=== PATIENT | male | born 1975 | race Caucasian/White ===

== ENCOUNTER → 2021-07-21 13:08 | Outpatient (CLI) | payer OTHER, SELFPAY ==
[2021-07-21 14:56] LABS: COVID19 -Nasal RAPID Negative (Negative)
== END ==
PROVIDERS: Visit Provider Surgery
DX: Z01.812 Encounter for preprocedural laboratory examination (principal); Z20.822 Contact with and (suspected) exposure to COVID-19
CPT/HCPCS: 87635; C9803

== ENCOUNTER 2021-07-22 07:56 | Day surgery (SDC) | payer OTHER, SELFPAY ==
[2021-05-28 11:56] VITALS: BMI 28.4
[2021-07-11 10:14] VITALS: BMI 28.4
[2021-07-22 09:46] VITALS: BP 110/72; PULSE 68; RESP 16; TEMP 36.8; O2SAT 98; BMI 28.4
[2021-07-22] MEDS: LACTATED RINGERS 1,000 ML 100 ML IV (09:58)
--- NOTE | 2021-07-22 10:21 | PM.HP.1 ---
History of Present Illness History of Present Illness Date Patient Seen: 07/22/21 Time Patient Seen: 10:21 Chief complaint: SDC Narrative: 45-year-old man with a symptomatic reducible umbilical hernia here for elective repair. No interval change in health. Please refer to the H& P from May 2021 for further detail. No previous umbilical hernia repair, no major abdominal surgeries. Patient History Medical History Astigmatism Borderline glaucoma Chalazion Disorder of optic nerve Hyperlipoproteinemia Hypermetropia Iliotibial band syndrome Presbyopia Right inguinal hernia Rosacea Umbilical hernia Surgical History Hx of hernia repair (~1994) Hx of surgical procedure Family & Social History Family History Father Cancer Grandfather Aneurysm Social History: household members spouse,children Tobacco & Substance use: Smoking Status Former smoker alcohol intake never Substance Use Type does not use Meds Home Medications and Allergies Home Medications Medication Instructions Recorded Confirmed Type ibuprofen 200 mg tablet (Advil) 400 mg PO Q6H PRN 05/13/21 07/22/21 History Allergies Allergy/AdvReac Type Severity Reaction Status Date / Time No Known Drug Allergies Allergy Verified 07/22/21 09:37 Exam Vital Signs (past 8 hours): - 07/22/21 09:46 Temperature 98.3 F Pulse Rate 68 Respiratory Rate 16 Blood Pressure 110/72 Pulse Oximetry 98 Oxygen Delivery Method Room Air Narrative Exam Narrative: GENERAL: Adult male in no apparent distress HEENT: No scleral icterus CV: Regular rate, no peripheral edema LUNGS: No increased work of breathing. Patient speaks in full sentences without oxygen support. ABDOMEN: Soft, non-tender, non-distended. NEURO: Nonfocal, normal strength throughout, normal gait. SKIN: Warm and dry Assessment & Plan Assessment and plan (1) Umbilical hernia: Qualifiers: Obstruction and gangrene presence: without obstruction or gangrene Qualified Code(s): K42.9 - Umbilical hernia without obstruction or gangrene Status: Acute Assessment & Plan narrative: 45-year-old man with a symptomatic reducible umbilical hernia here for elective open repair. Technical details of the operation were discussed with the patient. Operative risks including bleeding, infection, hernia recurrence, damage to surrounding structures were discussed. His questions have been answered he is in agreement with this plan will proceed to the operating room. Time Spent With Patient Critical Care time: I spent a total of [] minutes of critical care time on this patient's care today; this time is exclusive of procedural time.
[2021-07-22] MEDS: CEFAZOLIN 2 GM/20 ML SYRINGE IV (10:40)
--- NOTE | 2021-07-22 10:48 | SUR.OPER ---
Supine on padded OR bed, head on pillow, arms secured on padded arm boards at <90 degrees abduction, legs uncrossed, safety belt at thigh, tape over blanket over lower legs.
[2021-07-22] MEDS: BUPIVACAINE 0.25% (PF) VIAL 30 ML INJ (11:04)
--- NOTE | 2021-07-22 11:21 | PM.OP.1 ---
Operative Date/Time/Diagnoses Date of procedure: 07/22/21 Time of procedure: 11:21 Pre-op diagnosis: Umbilical hernia Post-op diagnosis: same Procedure & Clinicians Procedure: Open umbilical hernia repair Same procedure as scheduled: Yes Indications: Reducible symptomatic umbilical hernia Surgeon: Dave Winter Click Yes if Unassisted: Yes Anesthesia Type: General Operative Notes Findings: 2 cm fascial defect Specimen(s): none sent Estimated Blood Loss (mL): 10 Procedure in detail: Patient was brought to the operating room placed supine on the table. Bilateral lower extremity compression devices were applied. General anesthesia was induced and they were intubated with an endotracheal tube. They received 2 g of Ancef prior to skin incision. They were prepped and draped in sterile fashion. A time-out was performed. A curvilinear incision was made inferior to the umbilicus. The subcutaneous tissues were divided. The umbilical hernia was identified and the hernia sac was dissected off the umbilical skin and circumferentially off of the fascia defect. The hernia sac was sharply opened and contained viable omentum. The omentum was reduced back into the abdomen. Using blunt dissection I carefully carefully freed the hernia sac from beneath the fascia defect in order to accomodate the mesh. The fascia defect was 1.5 cm in maximal diameter. A Bard Ventralex ST hernia patch 4 cm was inserted beneath the fascia defect within the abdominal cavity. The mesh was anchored in multiple locations using Ethibond suture to the fascia and the fascial defect was closed over the mesh. The umbilical skin was tacked to the subcutaneous tissues and then the remainder of the subcutaneous tissues were reapproximated using 3 0 Vicry,l skin closed with 4 0 Monocryl followed by the application of Dermabond and Steri-Strips. Sponge instrument count at the end of the operation was correct. Patient tolerated procedure well was extubated and transferred to postoperative care unit in stable condition. Complications: none Post-operative Condition: stable Disposition: same day surgery
[2021-07-22 11:22] VITALS: BP 111/76; PULSE 73; RESP 13; TEMP 36.3; O2SAT 97
--- NOTE | 2021-07-22 11:26 | SUR.PHASEI ---
Received to PACU after general anesthesia. Airway patent, self maintained. Report received from RICHARD Weems Dr.
[2021-07-22 11:27] VITALS: BP 115/78; PULSE 67; RESP 14; O2SAT 97
[2021-07-22 11:39] VITALS: BP 112/64; PULSE 70; RESP 13; TEMP 36.2; O2SAT 97
[2021-07-22] MEDS: OXYCODONE IR 5 MG TABLET PO (11:44)
--- NOTE | 2021-07-22 11:45 | SUR.PHASEI ---
Assumed care from Dinah Gill, to opd, stable, medicated with oxycodone after applesauce tolerated.
[2021-07-22 11:49] VITALS: BP 116/74; PULSE 60; RESP 18; TEMP 36.4; O2SAT 98
[2021-07-22 12:35] VITALS: BP 105/68; PULSE 63; RESP 16; TEMP 36.7; O2SAT 97
--- NOTE | 2021-07-22 12:39 | SUR.PHASEII ---
Pt initially wanting meds to go to [facility], made aware, wanted meds to go to the [facility], meds kept there. Pt ready to go, called, 25 minutes to get here. Pt stated pain tolerable, walked to BR, steady when up, voided w/o difficulty.. Awaiting to arrive. Ice to abdomen, resting comfortably.
--- NOTE | 2021-07-22 15:13 | SUR.PHASEII ---
Late entry: Pt left unit in stable condition.
== END 2021-07-22 13:15 | disposition home or self-care (01) ==
PROVIDERS: Referring Provider Surgery; Visit Provider Surgery
PROC: (CPT 49585; principal; 2021-07-22 10:45)
DX: K42.9 Umbilical hernia without obstruction or gangrene (principal)
CPT/HCPCS: 49585; 82962; J0690; J1100; J1885; J2405; J2704; J3010